=== PATIENT | female | born 1965 | race Caucasian/White ===

== ENCOUNTER 2022-01-16 17:49 | Inpatient (IN) | payer SELFPAY ==
[2022-01-16 19:49] LABS: Hemoglobin 13.2 g/dL (12.0-16.0); Mean Corpuscular HGB CONC 31.7 g/dL (32.0-36.0); Mean Corpuscular Hemoglobin 36.5 pg (27.0-31.0); Mean Platelet Volume 8.2 fL (7.4-10.4); Platelet Count 146 thou/uL (130-400); RBC Distribution Width 17.1 % (11.5-14.5); Red Blood Cell (RBC) Count 3.62 mill/uL (4.20-5.40)
[2022-01-16 20:05] LABS: PTT 39.2 sec (22.9-36.1); Prothrombin Time 40.9 sec (12.0-14.7)
[2022-01-16 20:07] LABS: INR-International Normal Ratio 4.1
[2022-01-16 20:07] LABS: ALT (SGPT) 31 U/L (8-55); AST (SGOT) 88 U/L (5-34); Acetaminophen Less than 10.0 mcg/mL (10.0-30.0); Albumin 1.9 g/dL (3.5-5.0); Alcohol Less than 10 mg/dL (Less than 10); Alkaline Phosphatase 146 U/L (40-110); Anion Gap 21 mmol/L (10-20); BUN (Urea Nitrogen) 32 mg/dL (9.8-20.1); Bilirubin, Total 14.7 mg/dL (0.2-1.2); Calc. Creatinine Clearance 0 mL/min (70-130); Calcium 7.6 mg/dL (7.8-10.44); Carbon Dioxide 20 mmol/L (22-29); Chloride 85 mmol/L (98-107); Estimated GFR 31; Globulin 3.9 g/dL (2.4-3.5); Potassium 3.6 mmol/L (3.5-5.1); Protein, Total 5.8 g/dL (6.0-8.3); Salicylate Less than 8.0 mg/dL (15.0-30.0); Sodium 122 mmol/L (136-145)
[2022-01-16 20:21] LABS: Band 9 % (5-11); Lymphocytes 4 % (21-51); MDiff Complete? YES; Macrocytosis MODERATE=16-30 cells (100X) (0-5/hpf); Monocytes 2 % (0-10); Neutrophil 84 % (42-75); Ovalocytes SLIGHT = 2-5 cells (100X) (0-1/hpf); Platelet Morphology Comment Appears Adequate; Polychromasia SLIGHT = 2-3 cells (100X) (0-2/hpf); Reactive Lymphocytes 1 % (0-10); Target Cells SLIGHT = 2-5 cells (100X) (0-1/hpf); Tear Drops SLIGHT = 2-5 cells (100X) (0-1/hpf); Toxic Granulation SLIGHT; Vacuoles SLIGHT; White Blood Cell (WBC) Count 25.4 thou/uL (4.8-10.8)
[2022-01-16 20:32] LABS: Glucose 35 mg/dL (70-105)
[2022-01-16] MEDS ORDERED: Multivitamins, Adult 10 ML, Thiamine HCl 100 MG, Folic Acid 1 MG in Dextrose 5 %-0.45 %... IV SCH (21:00)
[2022-01-16] MEDS ORDERED: Meropenem 1 GM in Sodium Chloride 0.9% 100 ML IVPB SCH ×2 (23:45→23:59)
[2022-01-16] MEDS ORDERED: Sodium Chloride 0.9% 1,000 ML IV SCH (23:45)
[2022-01-16] MEDS ORDERED: Ondansetron ODT 4 MG TAB PO PRN (23:47)
[2022-01-16] MEDS ORDERED: Acetaminophen 650 MG Suppository PR PRN (23:47)
[2022-01-16] MEDS ORDERED: Ondansetron PF 4 MG/2 ML Vial IVP PRN (23:47)
[2022-01-16] MEDS ORDERED: Acetaminophen 325 MG TAB PO PRN (23:47)
[2022-01-16] MEDS ORDERED: Lorazepam 1 MG TAB PO SCH (23:59)
[2022-01-17 01:21] LABS: Anion Gap 23 mmol/L (10-20); BUN (Urea Nitrogen) 36 mg/dL (9.8-20.1); Calc. Creatinine Clearance 0 mL/min (70-130); Carbon Dioxide 16 mmol/L (22-29); Chloride 87 mmol/L (98-107); Estimated GFR 27; Glucose 126 mg/dL (70-105); Sodium 122 mmol/L (136-145)
[2022-01-17] MEDS ORDERED: NOREPINEPHRINE 8 MG/250 ML-D5W 250 ML ONE (01:47)
[2022-01-17 01:53] LABS: SARS-CoV-2 NAA Rapid Test Not Detected (NotDetected)
[2022-01-17] MEDS: NOREPINEPHRINE 8 MG/250 ML-D5W 250 ML IVPB SCH ×3 (01:53→21:10)
[2022-01-17] MEDS ORDERED: VANCOMYCIN 2 GRAM/500 ML BAG 2 GM in Premix Bag 1 BAG IVPB SCH (02:15)
[2022-01-17] MEDS ORDERED: Lorazepam 2 MG/ML VIAL IM PRN (02:19)
[2022-01-17] MEDS ORDERED: Lorazepam 1 MG TAB PO PRN (02:19)
[2022-01-17] MEDS ORDERED: Electrolyte Replacement Protocol 1 EACH FS SCH ×2 (02:30→05:30)
[2022-01-17 02:35] LABS: Actual Bicarbonate (HCO3a) 22.5 mEq/L (22-28); Base Excess (BEa) 0.9 mEq/L (-2.0 to +3.0); CO2 Tension 27.6 mmHg (35.0-45.0); Calcium, Ionized (arterial) 0.93 mmol/L (1.12-1.30); Hemoglobin (Hb) 12.8 g/dL (12.0-16.0); O2 Tension (PaO2), arterial 62.3 mmHg (80.0-100.0); Potassium - ABG Lab 3.29 mmol/L (3.70-5.30); pH, Arterial 7.53 (7.35-7.45)
[2022-01-17 02:37] LABS: Puncture Site LRA
[2022-01-17] MEDS ORDERED: Rifaximin 550 MG TAB PO SCH (03:15)
[2022-01-17] MEDS: Sodium Chloride 0.9% 1,000 ML IV SCH ×2 (03:43→10:10)
[2022-01-17 03:59] LABS: Bilirubin 3+ (Negative); Blood, Urine 2+ (Negative); Clarity Extra Turbid (Clear); Glucose, Urine (Dipstick) 30 mg/dL (Negative); Ketone, Urine Negative (Negative); Leukocyte 75 Leu/uL (Negative); Nitrite Negative (Negative); Protein, Urine (Dipstick) 70 mg/dL (Neg-Trace); Specific Gravity, Urine 1.025 (1.002-1.036); Urobilinogen Greater than 12 mg/dL (Less than 2); WBC/HPF Greater than 50 HPF (0-3); pH, Urine 5.5 (5.0-9.0)
[2022-01-17 04:02] LABS: Amphetamine Not Detected (NotDetected); Barbiturates Screen Not Detected (NotDetected); Benzodiazepine Screen Not Detected (NotDetected); Cocaine Metabolite Screen Detected (NotDetected); Methadone Not Detected (NotDetected); Methamphetamine Not Detected (NotDetected); Opiate Screen Not Detected (NotDetected); Oxycodone Screen Not Detected (NotDetected); Phencyclidine (PCP) Not Detected (NotDetected); THC/Cannabinoid Screen Detected (NotDetected); Tricyclic Screen Not Detected (NotDetected)
[2022-01-17 04:08] LABS: Transitional Epithelial 0-3 HPF (None Seen)
[2022-01-17 04:09] LABS: Bacteria/HPF 4+ HPF (None Seen); Renal Epithelial 0-3 HPF (None Seen)
[2022-01-17 04:10] LABS: Urine Culture Reflex No No
[2022-01-17 04:14] LABS: Phosphorus 4.5 mg/dL (2.3-4.7)
[2022-01-17] MEDS: Lorazepam 1 MG TAB PO SCH ×4 (04:14→21:11)
[2022-01-17 04:15] LABS: Anion Gap 18 mmol/L (10-20); BUN (Urea Nitrogen) 35 mg/dL (9.8-20.1); Calc. Creatinine Clearance 47 mL/min (70-130); Calcium 6.9 mg/dL (7.8-10.44); Carbon Dioxide 21 mmol/L (22-29); Chloride 87 mmol/L (98-107); Estimated GFR 26; Glucose 130 mg/dL (70-105); Magnesium 1.7 mg/dL (1.6-2.6); Potassium 3.3 mmol/L (3.5-5.1); Sodium 123 mmol/L (136-145)
[2022-01-17 04:17] LABS: ALT (SGPT) 30 U/L (8-55); AST (SGOT) 105 U/L (5-34); Albumin 1.7 g/dL (3.5-5.0); Alkaline Phosphatase 140 U/L (40-110); Bilirubin, Direct 9.3 mg/dL (0.1-0.3); Bilirubin, Direct 9.4 mg/dL (0.1-0.3); Bilirubin, Total 14.7 mg/dL (0.2-1.2); Bilirubin, Total 14.9 mg/dL (0.2-1.2); Lactic Acid 5.4 mmol/L (0.5-2.2); Protein, Total 5.5 g/dL (6.0-8.3)
[2022-01-17] MEDS: Thiamine HCl 200 MG/2 ML VIAL SLOW IVP SCH (04:46)
[2022-01-17 05:05] LABS: Anisocytosis SLIGHT = 6-15 cells (100X) (0-5/hpf); Band 11 % (5-11); Hemoglobin 12.7 g/dL (12.0-16.0); Lymphocytes 3 % (21-51); MDiff Complete? YES; Macrocytosis MODERATE=16-30 cells (100X) (0-5/hpf); Mean Corpuscular HGB CONC 32.6 g/dL (32.0-36.0); Mean Corpuscular Hemoglobin 36.6 pg (27.0-31.0); Mean Platelet Volume 8.3 fL (7.4-10.4); Monocytes 5 % (0-10); Neutrophil 81 % (42-75); Ovalocytes SLIGHT = 2-5 cells (100X) (0-1/hpf); Platelet Count 131 thou/uL (130-400); Platelet Morphology Comment Appears Adequate; RBC Distribution Width 16.8 % (11.5-14.5); Red Blood Cell (RBC) Count 3.48 mill/uL (4.20-5.40); Target Cells SLIGHT = 2-5 cells (100X) (0-1/hpf); Toxic Granulation SLIGHT; Vacuoles SLIGHT; White Blood Cell (WBC) Count 29.6 thou/uL (4.8-10.8)
[2022-01-17] MEDS ORDERED: Potassium Chloride 20 MEQ TAB PO SCH ×2 (05:45→12:30)
[2022-01-17] MEDS ORDERED: Magnesium 2 GM/50 ML(in water) 2 GM in Premix Bag 1 BAG IVPB SCH (05:45)
[2022-01-17] MEDS ORDERED: Meropenem 500 MG in Sodium Chloride 0.9% 100 ML IVPB SCH (08:00)
[2022-01-17] MEDS: Rifaximin 550 MG TAB PO SCH ×2 (10:06→21:11)
[2022-01-17] MEDS: Folic Acid 1 MG TAB PO SCH (10:06)
[2022-01-17] MEDS: Multivit, Therapeutic 1 TAB PO SCH (10:06)
[2022-01-17 11:00] LABS: ALT (SGPT) 35 U/L (8-55); AST (SGOT) 108 U/L (5-34); Albumin 1.7 g/dL (3.5-5.0); Alkaline Phosphatase 142 U/L (40-110); Anion Gap 20 mmol/L (10-20); BUN (Urea Nitrogen) 38 mg/dL (9.8-20.1); Bilirubin, Total 14.4 mg/dL (0.2-1.2); CK (CPK) 221 U/L (29-168); CRP (Inflammatory) 15.21 mg/dL (= or < 0.5); Calc. Creatinine Clearance 47 mL/min (70-130); Calcium 6.8 mg/dL (7.8-10.44); Carbon Dioxide 18 mmol/L (22-29); Chloride 90 mmol/L (98-107); Estimated GFR 25; Globulin 3.6 g/dL (2.4-3.5); Glucose 128 mg/dL (70-105); Potassium 3.5 mmol/L (3.5-5.1); Protein, Total 5.3 g/dL (6.0-8.3); Sodium 124 mmol/L (136-145)
[2022-01-17] MEDS ORDERED: Sodium Bicarbonate 150 MEQ in Dextrose 5% in Water 1,000 ML IV SCH (11:00)
[2022-01-17 11:07] LABS: Actual Bicarbonate (HCO3v) 21 mEq/L (22-28); Base Excess -1.1 mEq/L (-2.0 to +3.0); Calcium, Ionized (venous) 0.82 mmol/L (1.16-1.32); Chloride (VBG) 89 mmol/L (98-106); Hemoglobin (Hb) 13.8 g/dL (11.7-16.0); Potassium (VBG) 3.44 mmol/L (3.70-5.30); Sodium 120.1 mmol/L (133-146); pH (venous) 7.48 (7.32-7.43)
[2022-01-17] MEDS: methylPREDNISolone Sod Succ 40 MG VIAL IVP SCH ×3 (12:45→23:02)
[2022-01-17] MEDS: Dextrose 5 % And 0.9 % NaCl 1,000 ML IV SCH ×2 (12:46→23:00)
[2022-01-17 12:55] LABS: Prothrombin Time 44.8 sec (12.0-14.7)
[2022-01-17 12:57] LABS: INR-International Normal Ratio 4.6
[2022-01-17 13:59] LABS: Lactic Acid 4.7 mmol/L (0.5-2.2)
[2022-01-17 14:10] LABS: HBCM Index 0.15 S/CO (0-0.79); HBSAg Index 0.32 S/CO (0-0.99); Hep A IgM AB Non-Reactive (NonReactive); Hep A IgM S/CO 0.12 S/CO (0-0.79); Hep B Surf Ag Non-Reactive S/CO (NonReactive); Hep C IgG Ab Non-Reactive (NonReactive); Hep C Index 0.22 S/CO (0-0.79); Hepatitis B Core IgM Abs Non-Reactive (NonReactive)
[2022-01-17 14:14] LABS: Anion Gap 20 mmol/L (10-20); BUN (Urea Nitrogen) 41 mg/dL (9.8-20.1); Calc. Creatinine Clearance 44 mL/min (70-130); Carbon Dioxide 19 mmol/L (22-29); Chloride 90 mmol/L (98-107); Estimated GFR 24; Glucose 124 mg/dL (70-105); Potassium 3.7 mmol/L (3.5-5.1); Sodium 125 mmol/L (136-145)
[2022-01-17 14:57] LABS: Legionella Urinary Ag Negative (Negative)
[2022-01-17] MEDS: Meropenem 1 GM in Sodium Chloride 0.9% 100 ML IVPB SCH (16:54)
[2022-01-17 17:50] LABS: Strep pneumo Urine Ag NEGATIVE (NEGATIVE)
[2022-01-17 18:22] LABS: Lactic Acid 3.8 mmol/L (0.5-2.2)
[2022-01-17 18:25] LABS: Anion Gap 18 mmol/L (10-20); BUN (Urea Nitrogen) 41 mg/dL (9.8-20.1); Calc. Creatinine Clearance 44 mL/min (70-130); Calcium 6.9 mg/dL (7.8-10.44); Carbon Dioxide 20 mmol/L (22-29); Chloride 90 mmol/L (98-107); Estimated GFR 24; Glucose 169 mg/dL (70-105); Potassium 3.7 mmol/L (3.5-5.1); Sodium 124 mmol/L (136-145)
[2022-01-17 23:22] LABS: Anion Gap 17 mmol/L (10-20); BUN (Urea Nitrogen) 43 mg/dL (9.8-20.1); Calc. Creatinine Clearance 46 mL/min (70-130); Calcium 7.2 mg/dL (7.8-10.44); Carbon Dioxide 22 mmol/L (22-29); Chloride 90 mmol/L (98-107); Estimated GFR 25; Glucose 164 mg/dL (70-105); Potassium 3.5 mmol/L (3.5-5.1); Sodium 125 mmol/L (136-145)
[2022-01-18] MEDS: Potassium Chloride 20 MEQ TAB PO SCH ×2 (01:12→01:36)
[2022-01-18] MEDS ORDERED: Potassium Chloride 40 MEQ in Premix Bag 1 BAG IVPB SCH (01:30)
[2022-01-18] MEDS ORDERED: VANCOMYCIN 1.25 GM/250 ML BAG 1.25 GM in Premix Bag 1 BAG IVPB SCH ×2 (02:00→06:30)
[2022-01-18] MEDS ORDERED: Lorazepam 1 MG TAB PO PRN (02:19)
[2022-01-18] MEDS: Thiamine HCl 200 MG/2 ML VIAL SLOW IVP SCH (03:27)
[2022-01-18] MEDS: Lorazepam 1 MG TAB PO SCH ×2 (03:28→09:30)
[2022-01-18 04:49] LABS: INR-International Normal Ratio 2.7; Prothrombin Time 29.2 sec (12.0-14.7)
[2022-01-18 04:50] LABS: ALT (SGPT) 36 U/L (8-55); AST (SGOT) 98 U/L (5-34); Alkaline Phosphatase 141 U/L (40-110); Bilirubin, Direct 9.5 mg/dL (0.1-0.3); Bilirubin, Total 15.2 mg/dL (0.2-1.2); PTT 41.3 sec (22.9-36.1); Protein, Total 5.6 g/dL (6.0-8.3)
[2022-01-18 04:52] LABS: Anion Gap 17 mmol/L (10-20); BUN (Urea Nitrogen) 41 mg/dL (9.8-20.1); CK (CPK) 120 U/L (29-168); Calc. Creatinine Clearance 51 mL/min (70-130); Calcium 7.1 mg/dL (7.8-10.44); Carbon Dioxide 22 mmol/L (22-29); Chloride 91 mmol/L (98-107); Estimated GFR 28; Glucose 161 mg/dL (70-105); Magnesium 2.2 mg/dL (1.6-2.6); Phosphorus 4.9 mg/dL (2.3-4.7); Sodium 126 mmol/L (136-145)
[2022-01-18 05:50] LABS: Band 19 % (5-11); Hemoglobin 12.1 g/dL (12.0-16.0); Lymphocytes 3 % (21-51); MDiff Complete? YES; Mean Corpuscular HGB CONC 33.9 g/dL (32.0-36.0); Mean Corpuscular Hemoglobin 38.5 pg (27.0-31.0); Mean Platelet Volume 7.9 fL (7.4-10.4); Monocytes 11 % (0-10); Neutrophil 67 % (42-75); Platelet Count 103 thou/uL (130-400); Platelet Morphology Comment Appears Decreased; RBC Distribution Width 17.2 % (11.5-14.5); RBC Morphology Normal; Red Blood Cell (RBC) Count 3.15 mill/uL (4.20-5.40)
[2022-01-18 05:56] LABS: Vancomycin, Random 13.7 ug/mL (See Comment)
[2022-01-18] MEDS: methylPREDNISolone Sod Succ 40 MG VIAL IVP SCH ×2 (06:19→12:16)
[2022-01-18] MEDS: NOREPINEPHRINE 8 MG/250 ML-D5W 250 ML IVPB SCH (06:19)
[2022-01-18 08:15] LABS: Lactic Acid 3.1 mmol/L (0.5-2.2)
[2022-01-18] MEDS ORDERED: Pantoprazole 40 MG VIAL IVP SCH (09:00)
[2022-01-18] MEDS: Meropenem 1 GM in Sodium Chloride 0.9% 100 ML IVPB SCH (09:09)
[2022-01-18] MEDS: Multivit, Therapeutic 1 TAB PO SCH (09:11)
[2022-01-18] MEDS: Folic Acid 1 MG TAB PO SCH (09:12)
[2022-01-18] MEDS: Rifaximin 550 MG TAB PO SCH (09:12)
[2022-01-18] MEDS ORDERED: Lorazepam 2 MG/ML VIAL SLOW IVP PRN (14:23)
[2022-01-18] MEDS ORDERED: Morphine 2 MG/ML VIAL SLOW IVP PRN (14:23)
[2022-01-18] MEDS: Morphine 4 MG/ML VIAL SLOW IVP PRN ×2 (15:14→18:38)
[2022-01-18] MEDS: Midazolam HCl 2 mg/2 ml Vial SLOW IVP PRN ×2 (20:48→23:11)
[2022-01-19] MEDS: Midazolam HCl 2 mg/2 ml Vial SLOW IVP PRN (02:17)
[2022-01-19] MEDS ORDERED: Lorazepam 1 MG TAB PO PRN (02:19)
[2022-01-19] MEDS ORDERED: Lorazepam 0.5 MG TAB PO SCH (02:30)
[2022-01-19] MEDS: Morphine 4 MG/ML VIAL SLOW IVP PRN (10:50)
[2022-01-19] MEDS: Dextrose 5 % And 0.9 % NaCl 1,000 ML IV SCH (14:25)
[2022-01-20] MEDS: Morphine 4 MG/ML VIAL SLOW IVP PRN ×4 (00:32→11:01)
[2022-01-20] MEDS ORDERED: Lorazepam 0.5 MG TAB PO PRN (02:19)
[2022-01-20 08:32] VITALS: BP 93/56; TEMP 97
[2022-01-20] MEDS ORDERED: Thiamine 100 MG TAB PO SCH (09:00)
[2022-01-20 10:04] VITALS: BMI 37.3
== END 2022-01-20 16:35 | disposition hospice, inpatient (51) | DRG 871 ==
LOC: ERS 17:49 → ERHOLD 23:25 → IMCU/EMU 01-17 00:26 → CCU 01-17 02:37 → T4-A 01-19 14:03
PROVIDERS: ADMIT Student in an Organized Health Care Education/Training Program; ATTEND Family Medicine
PROC: 3E03329 Introduction of Other Anti-infective into Peripheral Vein, Percutaneous Approach (ICD-10-PCS; principal; 2022-01-16)
PROC: 3E033XZ Introduction of Vasopressor into Peripheral Vein, Percutaneous Approach (ICD-10-PCS; 2022-01-16)
PROC: 0T9B70Z Drainage of Bladder with Drainage Device, Via Natural or Artificial Opening (ICD-10-PCS; 2022-01-17)
PROC: 0DH97UZ Insertion of Feeding Device into Duodenum, Via Natural or Artificial Opening (ICD-10-PCS; 2022-01-17)
PROC: 02HV33Z Insertion of Infusion Device into Superior Vena Cava, Percutaneous Approach (ICD-10-PCS; 2022-01-17)
PROC: 5A1945Z Respiratory Ventilation, 24-96 Consecutive Hours (ICD-10-PCS; 2022-01-17)
PROC: 30233K1 Transfusion of Nonautologous Frozen Plasma into Peripheral Vein, Percutaneous Approach (ICD-10-PCS; 2022-01-17)
DX: A41.01 Sepsis due to Methicillin susceptible Staphylococcus aureus (principal); G92.8 Other toxic encephalopathy; R65.21 Severe sepsis with septic shock; K76.7 Hepatorenal syndrome; M72.6 Necrotizing fasciitis; N39.0 Urinary tract infection, site not specified; E87.1 Hypo-osmolality and hyponatremia; E87.20 Acidosis, unspecified; N17.9 Acute kidney failure, unspecified; N18.4 Chronic kidney disease, stage 4 (severe); J90 Pleural effusion, not elsewhere classified; F10.239 Alcohol dependence with withdrawal, unspecified; E87.3 Alkalosis; Z66 Do not resuscitate; Z51.5 Encounter for palliative care; E16.2 Hypoglycemia, unspecified; F14.10 Cocaine abuse, uncomplicated; F12.10 Cannabis abuse, uncomplicated; Z20.822 Contact with and (suspected) exposure to COVID-19; I12.9 Hypertensive chronic kidney disease with stage 1 through stage 4 chronic kidney disease, or unspecified chronic kidney disease; D64.9 Anemia, unspecified; E83.51 Hypocalcemia; E88.09 Other disorders of plasma-protein metabolism, not elsewhere classified; K70.30 Alcoholic cirrhosis of liver without ascites; K70.10 Alcoholic hepatitis without ascites; K76.82 Hepatic encephalopathy; E66.9 Obesity, unspecified; Z88.1 Allergy status to other antibiotic agents; S42.351D Displaced comminuted fracture of shaft of humerus, right arm, subsequent encounter for fracture with routine healing; X58.XXXD Exposure to other specified factors, subsequent encounter; Z98.890 Other specified postprocedural states; Y90.0 Blood alcohol level of less than 20 mg/100 ml; Z68.38 Body mass index [BMI] 38.0-38.9, adult
CPT/HCPCS: 36415; 36416; 36430; 36600; 70450; 71045; 71250; 74018; 74177; 80048; 80053; 80074; 80076; 80202; 80306; 80307; 81001; 82140; 82247; 82550; 82805; 83605; 83735; 84100; 84145; 85025; 85610; 85652; 85730; 86140; 86850; 86900; 86901; 87040; 87077; 87081; 87086; 87149; 87186; 87449; 87899; 93005; 93306; 96374; 96375; 96376; C9113; J2185; J2250; J2270; J2920; J3370; J3411; J3475; J3480; J3490; J7042; J7050; J7070; P9059; U0002

== ENCOUNTER 2022-01-20 16:41 | Inpatient (IN) | payer OTHER ==
[2022-01-20] MEDS ORDERED: Midazolam HCl 2 mg/2 ml Vial IVP PRN (16:53)
[2022-01-20] MEDS ORDERED: Bisacodyl 10 MG SUPP PR PRN (16:54)
[2022-01-20] MEDS ORDERED: Ondansetron PF 4 MG/2 ML Vial IVP PRN (17:00)
[2022-01-20] MEDS ORDERED: Scopolamine 1.5 mg/72 hour Patch TOP PRN (17:00)
[2022-01-20] MEDS ORDERED: Acetaminophen 650 MG Suppository PR PRN (17:00)
[2022-01-20] MEDS ORDERED: Promethazine HCl 25 MG SUPP PR PRN (17:00)
[2022-01-20] MEDS ORDERED: diphenhydrAMINE 50 MG/ML VIAL IVP PRN (17:00)
[2022-01-20] MEDS ORDERED: Haloperidol Lactate 5 MG/ML VIAL SLOW IVP PRN (17:00)
[2022-01-20] MEDS: Morphine 4 MG/ML VIAL SLOW IVP PRN ×3 (17:02→22:47)
[2022-01-20 23:19] VITALS: BP 87/52; TEMP 97.7
[2022-01-21] MEDS: Morphine 4 MG/ML VIAL SLOW IVP PRN ×5 (06:00→16:19)
== END 2022-01-21 18:36 | disposition expired | DRG 951 ==
LOC: T4-A 16:41
PROVIDERS: ADMIT Family Medicine; ATTEND Family Medicine
DX: Z51.5 Encounter for palliative care (principal); A41.01 Sepsis due to Methicillin susceptible Staphylococcus aureus; R65.21 Severe sepsis with septic shock; G93.41 Metabolic encephalopathy; K72.00 Acute and subacute hepatic failure without coma; N18.4 Chronic kidney disease, stage 4 (severe); N17.9 Acute kidney failure, unspecified; K74.60 Unspecified cirrhosis of liver; I12.9 Hypertensive chronic kidney disease with stage 1 through stage 4 chronic kidney disease, or unspecified chronic kidney disease
CPT/HCPCS: J2250; J2270